=== PATIENT | female | born 1955 | race Caucasian/White ===

== ENCOUNTER 2018-01-09 07:15 | Day surgery (SDC) | payer OTHER ==
[~2018-01-09 07:15] MED LIST: Buffered Lidocaine 0.9% SYRIN* 5 ML/SYR SYRINGE INTRADERM ONE; Famotidine IV* 10 MG/ML 2 ML (20 mg) IV ONE; Famotidine IV* 10 MG/ML 2 ML (20 mg) ONE
[2018-01-09] MEDS ORDERED: Lidocaine 2% MPF* 2 ML VIAL ONE (08:03)
[2018-01-09] MEDS ORDERED: fentaNYL* 50 MCG/ML 2 ML VIAL (100 MCG VIAL) ONE (08:03)
[2018-01-09] MEDS ORDERED: Midazolam* 1 MG/ML 2 ML VIAL (2 MG) ONE (08:03)
[2018-01-09] MEDS ORDERED: Propofol* 10 MG/ML 20 ML BTL IV PUSH ONE (08:03)
[2018-01-09] MEDS ORDERED: Lidocaine 1% INJ* 10 MG/ML 30 ML SDV ONE (08:08)
[2018-01-09] MEDS ORDERED: Bupivacaine 0.5% SDV PF* 30ML VIAL ONE (08:09)
[2018-01-09] MEDS ORDERED: Lidocain 1% EPI 1:100,000 * 30 ML MDV ONE (08:09)
[2018-01-09] MEDS ORDERED: Silver Sulfadiazine 1%* 20 GM ONE (08:17)
[2018-01-09] MEDS ORDERED: fentaNYL* 50 MCG/ML 2 ML VIAL (100 MCG VIAL) IV PRN (08:20)
[2018-01-09] MEDS ORDERED: Naloxone* 0.4 MG/ML 1 ML VIAL IV PRN (08:20)
[2018-01-09] MEDS ORDERED: HYDROcodone/ACETAMIN 5-325 MG* 1 TAB PO PRN (08:20)
[2018-01-09] MEDS ORDERED: Ondansetron INJ* 2 MG/ML VIAL IV PRN (08:20)
[2018-01-09 09:38] VITALS: BP 122/73
--- NOTE | 2018-01-10 08:05 | OP ---
DATE OF OPERATION: 01/09/[address] [facility] DATE OF : 55 SURGEON: Desmond Starks DPM. ANESTHESIA: MAC local. PRE-OP DIAGNOSIS: Left foot plantar warts. POST-OP DIAGNOSIS: Left foot plantar warts. OPERATIVE PROCEDURE: CO2 laser ablation and curettage, left foot plantar warts. ESTIMATED BLOOD LOSS: Less than 10 cc. IV FLUIDS: LR 1000 cc. DRAINS: None. SPECIMEN: Plantar wart, left foot DESCRIPTION OF PROCEDURE: The patient was placed taken to the operating room and was placed in supine position. A time-out was called and OR team agreed. The left foot was then blocked with 10 cc of 1% lidocaine plain intralesionally. The foot was then prepped and draped in a sterile manner. The left foot was exsanguinated with an Esmarch bandage and the cuff was then inflated to 250 mmHg. Attention was then paid to the plantar aspect of the left foot. Under the crease line and just slightly proximal to it, there is a plantar wart. Starting from there, it was going underneath the second toe. The entire size of the wart is approximately 4.1 cm. I then proceed to use CO2 laser set at 6 williamson in a continuous fashion. I ablated the warts and proceed to curettage it until I get down to the papillary layer as indicated by the skin lines. I then took the portions of ablated tissue and sent it for tissue microscopy. This effectively completes the procedure. The cuff was then deflated. The foot was then placed in a dry sterile dressing. She was discharged in a stable condition. We will see her in the office in 3 days. [id number]/[facility] #: [id number] NICOLAS
== END 2018-01-09 10:03 | disposition home or self-care (01) ==
LOC: OREAST 07:15
PROVIDERS: ATTEND Podiatrist
DX: B07.0 Plantar wart (principal); I10 Essential (primary) hypertension; E11.9 Type 2 diabetes mellitus without complications; E78.4 Other hyperlipidemia; I82.402 Acute embolism and thrombosis of unspecified deep veins of left lower extremity; R60.0 Localized edema; M79.672 Pain in left foot; F17.210 Nicotine dependence, cigarettes, uncomplicated; Z79.01 Long term (current) use of anticoagulants; Z88.0 Allergy status to penicillin; Z88.1 Allergy status to other antibiotic agents; Z88.8 Allergy status to other drugs, medicaments and biological substances
CPT/HCPCS: 88305; A9270-GY; J2250; J2704; J3010

== ENCOUNTER 2018-07-14 08:14 | Emergency (ER) | payer OTHER ==
--- NOTE | 2018-07-14 08:43 | ED ---
Back Pain - HPI Summary HPI Summary: Patient is a 62 y/o F presenting to ED with complaints of lower left back pain onsetting five days ago while watching TV in the evening. No trauma reported. She describes pain as sharp, claims that pain will wax and wane. When pain wanes , she experiences a burning/itching sensation at the area. No radiation of pain is reported. Patient denies fever, chills, difficulty urinating, hematuria. No change in bowel/bladder control. No prior episodes of present Sx reported. Patient reports Hx of bacterial infections in left leg, denies any acute Sx with regards to this. Patient takes hydrocodone and muscle relaxant Carisoprodol. She claims to be taking x2 hydrocodone/APAP every four hours since pain onset and muscle relaxant before bedtime. Last dose of hydrocodone/ APAP 2am. No Hx of sciatica reported. She does not see pain management. Patient is on Coumadin 20 years for blood clot in left leg. Last level last week - was "good." Patient reports broken tailbone "years ago", PSHx of cholecystectomy, knee replacement. Hx RA in ankles. Patient states she is not on any antibiotics. Patient smokes cigarettes daily, denies alc or substance usage. On triage, pain is rated 10/10. Home medications and allergies are reviewed. - History of Current Complaint Chief Complaint: EDBackInjuryPain Stated Complaint: BACK PAIN Hx Obtained From: Patient Onset/Duration: Lasting Days - onset five days ago, Still Present Onset/Duration: Started Days Ago - onset five days ago, Still Present Timing: Constant, Lasting Days - onset five days ago Back Pain Location: Is Discrete @ - left lower back Severity Currently: Severe - 10/10 Pain Intensity: 10 Pain Scale Used: 0-10 Numeric - 10/10 Character: Sharp, Burning Associated Signs And Symptoms: Positive: Other - no chills, difficulty urinating , hematuria, radiation of pain. Negative: Fever, Bladder Incontinence, Bowel Incontinence - Allergies/Home Medications Allergies/Adverse Reactions: Allergies Allergy/AdvReac Type Severity Reaction Status Date / Time Adhesive Tape Allergy Severe Skin tear Verified 07/14/18 08:19 codeine Allergy Severe Swelling Verified 07/14/18 08:19 Of Face,Lips,& Throat kiwi Allergy Severe Swelling Verified 07/14/18 08:19 Of Face,Lips,& Throat oxycodone Allergy Severe Aching Verified 07/14/18 08:19 hydrochlorothiazide Allergy Intermediate Rash Verified 07/14/18 08:19 Sulfa (Sulfonamide Allergy Intermediate Rash Verified 07/14/18 08:19 Antibiotics) diazepam Allergy Unknown Altered Verified 07/14/18 08:19 Mental Status Penicillins Allergy Unknown Difficulty Verified 07/14/18 08:19 Breathing/Wheezing tetracycline Allergy Unknown Yeast Verified 07/14/18 08:19 ciprofloxacin Allergy See Comment Verified 07/14/18 08:19 bee venom Allergy Severe Anaphylatic Uncoded 01/09/18 07:43 Shock PMH/Surg Hx/FS Hx/Imm Hx Previously Healthy: No - RA - plaquenil Endocrine/Hematology History: Reports: Hx Anticoagulant Therapy - coumadin, Hx Diabetes Denies: Hx Bone Marrow Disease, Hx Sickle Cell Disease, Hx Thyroid Disease Cardiovascular History: Reports: Hx Hypertension, Hx Peripheral Vascular Disease - HX DVT- LEFT CALF- 1999, Other Cardiovascular Problems/Disorders - 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 Denies: Hx Pacemaker/ICD Respiratory History: Reports: Other Respiratory Problems/Disorders - States she has trouble breathing when it is hot and humid out, albuterol GI History: Reports: Other GI Disorders - cholecystectomy History: Reports: Other Problems/Disorders - frequent urination Denies: Hx Renal Disease Musculoskeletal History: Reports: Hx Arthritis - fingers, ankles, knees, Other Musculoskeletal History - BROKE TAILBONE- LYING ON BACK TOO LONG CAUSES PAIN Sensory History: Reports: Hx Cataracts - Bilateral cataracts removed 2011, Hx Contacts or Glasses - READING GLASSES Denies: Hx Glaucoma, Hx Hearing Aid Opthamlomology History: Reports: Hx Cataracts - Bilateral cataracts removed 2011 , Hx Contacts or Glasses - READING GLASSES Denies: Hx Glaucoma Neurological History: Reports: Hx Nerve Disease - PERIPHERAL NEUROPATHY Denies: Other Neuro Impairments/Disorders Psychiatric History: Denies: Hx Panic Disorder - Surgical History Surgery Procedure, Year, and Place: GALLBLADDER 1990- [facility]. LEFT TKR 02/28/[place] [facility] [place] BILAT CATARACT 2011 [facility] [place] Hx Anesthesia Reactions: No Infectious Disease History: No Infectious Disease History: Denies: Traveled Outside the [place] in Last 30 Days - Family History Known Family History: Positive: Diabetes - Social History Alcohol Use: None Substance Use Type: Reports: None Smoking Status (MU): Light Every Day Tobacco Smoker Type: Cigarettes Amount Used/How Often: 8 CIGS/DAY Length of Time of Smoking/Using Tobacco: 45 YRS Have You Smoked in the Last Year: Yes Review of Systems Positive: Other - NEGATIVE - TRAUMA . Negative: Fever, Chills Positive: other - NEGATIVE - DIFFICULTY URINATING . Negative: hematuria, incontinence Positive: Other - POSITIVE - LEFT LOWER BACK PAIN All Other Systems Reviewed And Are Negative: Yes Physical Exam - Summary Physical Exam Summary: Vital Signs Reviewed: Yes A+Ox3, mild discomfort Eyes: Conjunctiva Clear, LAURA. EOM intact and full ENT: Hearing grossly normal TM x 2 clear, mmoist, uvula midline, no exudate, no erythema Neck: Positive: Supple Respiratory: Positive: No respiratory distress, No accessory muscle use + CTA throughout no w/r Cardiovascular: RRR nl s1, s2 no m/r CBT <2 sec abd soft + BS nt/nd no guarding, no distension Musculoskelatal Exam: ambulatory without limp no spinous process pain c/t/l/s + TTP left paraspinal mid lumbar to left buttock + SLE b/l + flex/ext knee, ankle Pain increases with flexion at waist and lateral rotation to right Neurological: Positive: Alert, + sensation throughout + sensation throughout LE 2+ patellar without clonus Psychological: Positive: Normal Response To Family Skin: Positive: no rash, no ecchymosis, no erythema, no skin changes over site Triage Information Reviewed: Yes Vital Signs On Initial Exam: Initial Vitals Temp Pulse Resp BP Pulse Ox 97.7 F 71 16 163/82 100 07/14/18 08:15 07/14/18 08:15 07/14/18 08:15 07/14/18 08:15 07/14/18 08:15 Vital Signs Reviewed: Yes Diagnostics - Vital Signs Vital Signs Temp Pulse Resp BP Pulse Ox 07/14/18 08:15 97.7 F 71 16 163/82 100 - Laboratory Result Diagrams: 07/14/18 09:02 07/14/18 09:02 Lab Statement: Any lab studies that have been ordered have been reviewed, and results considered in the medical decision making process. - Radiology LUMBAR X-RAY Radiology Interpretation Completed By: Radiologist Summary of Radiographic Findings: IMPRESSION: No fracture of the lumbar spine is noted. THIS REPORT WAS REVIEWED BY ED PHYSICIAN. Re-Evaluation - Re-Evaluation First Eval Comment: Jackie Naidu | Reference #: [id number] - ISTOP checked - confirmed hydrocodone prescribed (despite allergies to other opiates) Second Eval Re-Evaluation Time: 09:48 Change: Improved Comment: pt states pain slightly improved. labs unremarkable. xray normal. await urine, anticipate discharge Third Eval Re-Evaluation Time: 10:25 Comment: Discussed results of labs and tests with patient. Care for muscle spasms was discussed as well. Patient will be discharged after UA. She is agreeable with this. Await CXR as well Fourth Eval Re-Evaluation Time: 10:54 Change: Improved - urine back - unremarkable pt yupdated - will discharge BP elevated -recommended PCP recheck Comment: urine back - unremarkable pt yupdated - will discharge BP elevated - recommended PCP recheck. This was discussed with patient. Back Pain Course/Dx - Course Course Of Treatment: Patient presents to emergency department reporting 5 days of left low back pain. Patient states that spasm-like pain and then intermittently feels like her skin is burning. Patient's been taking hydrocodone every 4 hours as prescribed per her primary. Patient's also been taking a muscle relaxer at bedtime. Patient reports little improvement with these. Patient has not applied any ice or heat. No stretching. No paresthesias down the leg. No leg weakness. No trauma. Patient is on immunosuppressants due to RA in her ankles. Given this we'll check lumbar spine. CBC periods BMP. A magnesium. We'll give patient some hydrocodone here she is due. I stop was checked and confirmed patient's prescriptions to these medications. If labs are within normal limits anticipate patient will be discharged home. Patient comfortable in agreement with plan. Of note, patient cannot have NSAIDs as she take coumading for a remote LLE DVT - Diagnoses Provider Diagnoses: Back pain, Muscle spasm Discharge - Sign-Out/Discharge Documenting (check all that apply): Patient Departure - Discharge Plan Condition: Improved Disposition: HOME Patient Education Materials: Muscle Spasm (ED), Back Pain (ED) Referrals: Bruno Leonard MD [Primary Care Provider] - Additional Instructions: - Okay to take Tylenol product (Tylenol or Tylenol/codeine) combination every 6hours as needed for pain. Take with food. Do NOT take for more than 4-[address], operate machinery or drink alcohol while taking hydrocodone. This medication may cause constipation - use a stool softner as needed - Take muscle relaxer as prescribed -Apply moist heat to your back for 20 minutes at a time, 4-5 times a day. Once your muscles are warm, slow gentle stretching exercises are important - When sleeping, place a pillow under your knees to help relieve pressure of your back. If you are on your side, place a pillow between your knees. -Contact your doctor today to arrange a follow-up appointment next week. - If you pain in uncontrolled, you develop numbness, weakness or new or symptoms in your leg it is recommended you return to the emergency department or contact your primary doctor - Billing Disposition and Condition Condition: IMPROVED Disposition: Home - Attestation Statements Document Initiated by Leno: Yes Documenting Scribe: Bharathi Rausch Provider For Whom Leno is Documenting (Include Credential): Jackie Naidu MD Scribe Attestation: Bharathi Sanders, scribed for Jackie Naidu MD on 07/14/18 at 1057. Scribe Documentation Reviewed: Yes Provider Attestation: The documentation as recorded by the Bharathi matias accurately reflects the service I personally performed and the decisions made by me, Jackie Naidu MD Status of Scribe Document: Viewed
[2018-07-14] MEDS ORDERED: HYDROcodone/ACETAMIN 5-325 MG* 1 TAB PO ONE (08:53)
[2018-07-14 09:16] LABS: ABS Basophils 0 10^3/ul (0-0.2); ABS Eosinophils 0.1 10^3/ul (0-0.6); ABS Lymphocytes 1.5 10^3/ul (1.0-4.8); ABS Monocytes 0.5 10^3/ul (0-0.8); ABS Nucleated RBC 0 10^3/ul; Eosinophil % 1.8 %; Hematocrit 45 % (35-47); Hemoglobin 14.8 g/dl (12.0-16.0); Lymphocyte % 24.5 %; Mean Corpuscular HGB Conc 33 g/dl (31-36); Mean Corpuscular Hemoglobin 31 pg (27-31); Mean Corpuscular Volume 93 fL (80-97); Mean Platelet Volume 9.8 fL (7.4-10.4); Nucleated Red Blood Cells % 0.1; Platelet Count 182 10^3/ul (150-450); Red Cell Distribution Width 14 % (10.5-15); White Blood Count 6.1 10^3/ul (3.5-10.8)
[2018-07-14 09:37] LABS: BUN/Creatinine Ratio 13.9 (8-20); Calcium 9.4 mg/dL (8.6-10.3); EGFR Non-African American 73.7 (>60); Magnesium 1.8 mg/dL (1.9-2.7); Potassium 4.5 mmol/L (3.5-5.0)
[2018-07-14 10:44] LABS: Urine Appearance Clear; Urine Bilirubin Negative (Negative); Urine Blood Negative (Negative); Urine Color Yellow; Urine Glucose Negative (Negative); Urine Ketones Negative (Negative); Urine Nitrite Negative (Negative); Urine Protein Negative (Negative); Urine Specific Gravity 1.006 (1.010-1.030); Urine Urobilinogen Negative (Negative)
[2018-07-14 11:19] VITALS: BP 139/81
== END 2018-07-14 11:02 | disposition home or self-care (01) ==
LOC: ED 08:14
DX: M54.5 Low back pain (principal); M62.830 Muscle spasm of back; Z86.718 Personal history of other venous thrombosis and embolism; Z79.01 Long term (current) use of anticoagulants; Z90.49 Acquired absence of other specified parts of digestive tract; Z88.1 Allergy status to other antibiotic agents; Z91.030 Bee allergy status; Z88.5 Allergy status to narcotic agent; Z88.0 Allergy status to penicillin; Z88.2 Allergy status to sulfonamides; Z88.8 Allergy status to other drugs, medicaments and biological substances; Z91.018 Allergy to other foods
CPT/HCPCS: 36415; 72110; 80048; 81003; 83735; 85025; 99282